=== PATIENT | male | born 1935 | race Caucasian/White ===

== ENCOUNTER → 2016-07-26 | Outpatient (CLI) | payer BC ==
[~2016-07-26] MED LIST: ACET-1757 PO; AMIO200T42 PO; AMLO10TA2 PO; AMLO5TAB2 PO; ASPI-650 PO; CARV12.52 PO; CEFD300C37 PO; DOCU-30 PO; FINA5TAB4 PO; GUAI5SYR PO; HYDR-3341 PO; LEVO75TA5 PO; LISI-167 PO; LORA-445 PO; METO25TA35 PO; METO50TA3 PO; OXYC5TAB3 PO; TAMS0.4C2 PO; TRAZ50TA18 PO
== END | disposition home or self-care (01) ==
LOC: CFH 12:43
PROVIDERS: ATTEND Internal Medicine Cardiovascular Disease
DX: I08.3 Combined rheumatic disorders of mitral, aortic and tricuspid valves (principal); I37.1 Nonrheumatic pulmonary valve insufficiency; I51.7 Cardiomegaly; I48.91 Unspecified atrial fibrillation
CPT/HCPCS: 93306

== ENCOUNTER 2017-05-24 09:37 | Inpatient (IN) | payer MEDICARE, BC ==
[~2017-05-24] VITALS: Ht 182.9 cm; Wt 92.2 kg
[~2017-05-24 09:37] MED LIST changes: +DOCU-131 PO; -DOCU-30 PO; -METO50TA3 PO; +METO50TA6 PO
[2017-05-24] MEDS ORDERED: SODIUM CHLORIDE 0.9% 1,000 ML IV ONE (09:50)
[2017-05-24 10:01] VITALS: BP 129/69
[2017-05-24] MEDS ORDERED: HYDR-3343 PO (10:19)
[2017-05-24] MEDS ORDERED: DOXA1TAB2 PO (10:20)
[2017-05-24] MEDS ORDERED: APIX5TAB PO (10:20)
[2017-05-24] MEDS ORDERED: LOVA10TA PO (10:20)
[2017-05-24] MEDS ORDERED: HYDR500C3 PO (10:22)
[2017-05-24] MEDS ORDERED: BUDE10.2 INH (10:23)
[2017-05-24] MEDS ORDERED: ALBU90AE INH (10:25)
[2017-05-24] MEDS ORDERED: ALLO300T PO (10:26)
[2017-05-24] MEDS ORDERED: PLEASE ENTER HEIGHT AND WEIGHT MC SCH (10:30)
[2017-05-24] MEDS ORDERED: FENTANYL PF 100 MCG/2ML ONE (11:45)
[2017-05-24] MEDS ORDERED: MIDAZOLAM 1 MG/ML, 5ML ONE (11:45)
[2017-05-24] MEDS ORDERED: VERAPAMIL 2.5 MG/ML, 2ML ONE (11:45)
[2017-05-24] MEDS ORDERED: TICAGRELOR 90 MG TABLET ONE (11:45)
[2017-05-24] MEDS ORDERED: NITROGLYCERIN 5 MG/ML, 10ML ONE (11:46)
[2017-05-24] MEDS ORDERED: BIVALIRUDIN 250 MG ONE ×2 (11:46→12:03)
[2017-05-24] MEDS ORDERED: LIDOCAINE 2%, 20ML ONE (11:46)
[2017-05-24] MEDS ORDERED: HEPARIN 1,000 UNITS/ML, 10ML ONE (11:46)
[2017-05-24] MEDS ORDERED: CLOPIDOGREL 300 MG TABLET ONE (12:47)
[2017-05-24] MEDS ORDERED: SODIUM CHLORIDE 0.9% 1,000 ML IV SCH (12:54)
[2017-05-24] MEDS ORDERED: ACETAMINOPHEN 325 MG TABLET PO PRN (13:00)
[2017-05-24] MEDS ORDERED: ONDANSETRON 2MG/ML, 2ML IVPush PRN (13:00)
[2017-05-24 13:10] VITALS: BP 118/60
[2017-05-24] MEDS ORDERED: FLU VACC QS2017-18 (36MOS+) UP/PF 0.5 ML IM-VACC ONE (14:00)
[2017-05-24] MEDS: FLUTICASONE/VILANTEROL 200-25MCG/INH INH SCH (14:00)
[2017-05-24] MEDS ORDERED: ALBUTEROL SULFATE 2.5 MG/3 ML NPPB PRN (14:00)
[2017-05-24 19:52] VITALS: BP 99/54
[2017-05-24] MEDS: LOVASTATIN 10 MG TABLET PO SCH (20:53)
[2017-05-24] MEDS: HYDROXYUREA 500 MG CAPSULE PO SCH (20:53)
[2017-05-24] MEDS: APIXABAN 5 MG TABLET PO SCH (20:53)
[2017-05-24] MEDS: TAMSULOSIN 0.4 MG CAP.ER.24H PO SCH (20:54)
[2017-05-24] MEDS: CARVEDILOL 25 MG TABLET PO SCH (20:54)
[2017-05-25 02:35] VITALS: BP 105/62
[2017-05-25 05:50] LABS: ALBUMIN 3.4 g/dL (3.4-5.0); ANION GAP 8 mmol/L (5-15); CHLORIDE 111 mmol/L (98-107); CREATININE 1.52 mg/dL (0.7-1.3)
[2017-05-25 05:51] LABS: CALCIUM 8.2 mg/dL (8.5-10.1)
[2017-05-25] MEDS ORDERED: ASPIRIN 81 MG TABLET EC PO SCH ×2 (06:00→09:00)
[2017-05-25] MEDS: HYDROXYUREA 500 MG CAPSULE PO SCH (08:13)
[2017-05-25] MEDS: DOXAZOSIN 1MG TABLET PO SCH (08:14)
[2017-05-25] MEDS: APIXABAN 5 MG TABLET PO SCH (08:14)
[2017-05-25] MEDS: AMLODIPINE 5 MG TABLET PO SCH (08:14)
[2017-05-25] MEDS: FLUTICASONE/VILANTEROL 200-25MCG/INH INH SCH (08:14)
[2017-05-25] MEDS: ALLOPURINOL 300 MG TABLET PO SCH (08:14)
[2017-05-25] MEDS: CARVEDILOL 25 MG TABLET PO SCH (08:14)
[2017-05-25] MEDS: FINASTERIDE 5 MG TABLET PO SCH (08:15)
[2017-05-25] MEDS: CLOPIDOGREL 75 MG TABLET PO SCH (08:15)
[2017-05-25 08:45] VITALS: BP 131/65
[2017-05-25] MEDS ORDERED: CLOPIDOGREL 75 MG TABLET PO SCH (09:00)
[2017-05-25] MEDS ORDERED: IRON SUCROSE COMPLEX 100MG/5ML IV ONE (09:00)
[2017-05-25 13:29] LABS: MEAN CORPUSCULAR HEMOGLOBIN 44.2 pg (27.5-34.5); MEAN CORPUSCULAR HGB CONC 34.9 g/dL (33.2-36.2); MEAN CORPUSCULAR VOLUME 126.6 fL (81-97); MEAN PLATELET VOLUME 6.4 fL (7.4-10.4); PLATELET COUNT 148 x10^3/uL (130-400); RED BLOOD COUNT 1.92 x10^6/uL (4.38-5.82); RED CELL DISTRIBUTION WIDTH 17.7 % (9.4-14.8)
[2017-05-25 13:56] LABS: MD YES
[2017-05-25 14:01] LABS: EOS#(MANUAL) 0.03 x10^3/uL (0.0-0.4); EOS% (MANUAL) 1 % (1-7); LYMPH#(MANUAL) 1.17 x10^3/uL (1-3.4); LYMPHS% (MANUAL) 45 % (22-44); MONOS#(MANUAL) 0.08 x10^3/uL (0.3-2.7); MONOS% (MANUAL) 3 % (2-9); REACTIVE LYMPHS # (MANUAL) 0.03 x10^3/uL (0-0); REACTIVE LYMPHS % (MANUAL) 1 % (0-0); SEGS% (MANUAL) 50 % (42-75)
[2017-05-25 14:06] LABS: ANISOCYTOSIS 1+
[2017-05-25 14:07] LABS: <PLATELET ESTIMATE> ADEQUATE; OVALOCYTES 1+; POLYCHROMASIA 1+
[2017-05-25 14:08] LABS: <PLT MORPHOLOGY> NORMAL PLT MORPH
[2017-05-25] MEDS: PANTOPRAZOLE 40 MG IV IVPush SCH (15:03)
[2017-05-25 15:57] VITALS: BP 117/76
[2017-05-25 19:20] VITALS: BP 109/60
[2017-05-25 23:11] VITALS: BP 109/53
[2017-05-26] MEDS: TAMSULOSIN 0.4 MG CAP.ER.24H PO SCH ×2 (00:01→20:41)
[2017-05-26] MEDS: LOVASTATIN 10 MG TABLET PO SCH ×2 (00:02→20:41)
[2017-05-26] MEDS: HYDROXYUREA 500 MG CAPSULE PO SCH ×3 (00:10→20:43)
[2017-05-26] MEDS: CARVEDILOL 25 MG TABLET PO SCH ×3 (00:12→20:41)
[2017-05-26 00:56] VITALS: BP 121/53
[2017-05-26] MEDS: PANTOPRAZOLE 40 MG IV IVPush SCH (01:37)
[2017-05-26] MEDS: ZOLPIDEM 5MG TABLET PO PRN ×2 (01:38→23:12)
[2017-05-26] MEDS ORDERED: OMEPRAZOLE 20 MG CAPSULE.DR PO SCH (07:30)
[2017-05-26] MEDS: ALLOPURINOL 300 MG TABLET PO SCH (09:43)
[2017-05-26] MEDS: DOXAZOSIN 1MG TABLET PO SCH (09:44)
[2017-05-26] MEDS: CLOPIDOGREL 75 MG TABLET PO SCH ×2 (09:44→11:20)
[2017-05-26] MEDS: AMLODIPINE 5 MG TABLET PO SCH (09:44)
[2017-05-26 09:48] VITALS: BP 109/65
[2017-05-26] MEDS: FINASTERIDE 5 MG TABLET PO SCH (11:20)
[2017-05-26] MEDS: FLUTICASONE/VILANTEROL 200-25MCG/INH INH SCH (11:21)
[2017-05-26 15:56] VITALS: BP 109/59
[2017-05-26 20:09] VITALS: BP 113/64
[2017-05-26] MEDS: PANTOPROZOLE 40MG TABLET PO SCH (20:41)
[2017-05-26 23:41] LABS: OCCULT BLOOD NEGATIVE (NEGATIVE)
[2017-05-27] VITALS (9 sets, daily range): BP systolic 100–126; BP diastolic 54–70
[2017-05-27] MEDS: FLUTICASONE/VILANTEROL 200-25MCG/INH INH SCH (08:23)
[2017-05-27] MEDS: PANTOPROZOLE 40MG TABLET PO SCH ×2 (08:23→21:44)
[2017-05-27] MEDS: CLOPIDOGREL 75 MG TABLET PO SCH (08:23)
[2017-05-27] MEDS: CARVEDILOL 25 MG TABLET PO SCH ×2 (08:23→21:44)
[2017-05-27] MEDS: FINASTERIDE 5 MG TABLET PO SCH (08:23)
[2017-05-27] MEDS: ALLOPURINOL 300 MG TABLET PO SCH (08:26)
[2017-05-27] MEDS: DOXAZOSIN 1MG TABLET PO SCH (08:28)
[2017-05-27] MEDS: AMLODIPINE 5 MG TABLET PO SCH (08:29)
[2017-05-27] MEDS: HYDROXYUREA 500 MG CAPSULE PO SCH (09:00)
[2017-05-27] MEDS ORDERED: FENTANYL PF 100 MCG/2ML ONE (13:05)
[2017-05-27] MEDS ORDERED: MIDAZOLAM 1 MG/ML, 5ML ONE (13:05)
[2017-05-27] MEDS: LOVASTATIN 10 MG TABLET PO SCH (21:43)
[2017-05-27] MEDS: TAMSULOSIN 0.4 MG CAP.ER.24H PO SCH (21:43)
[2017-05-27] MEDS: ZOLPIDEM 5MG TABLET PO PRN (23:40)
[2017-05-28 00:28] VITALS: BP 101/52
[2017-05-28 07:45] VITALS: BP 109/56
[2017-05-28] MEDS: FLUTICASONE/VILANTEROL 200-25MCG/INH INH SCH (08:51)
[2017-05-28] MEDS: DOXAZOSIN 1MG TABLET PO SCH (08:53)
[2017-05-28] MEDS: AMLODIPINE 5 MG TABLET PO SCH (08:53)
[2017-05-28] MEDS: CARVEDILOL 25 MG TABLET PO SCH (08:53)
[2017-05-28] MEDS: PANTOPROZOLE 40MG TABLET PO SCH (08:54)
[2017-05-28] MEDS: FINASTERIDE 5 MG TABLET PO SCH (08:54)
[2017-05-28] MEDS: ALLOPURINOL 300 MG TABLET PO SCH (08:54)
[2017-05-28] MEDS: CLOPIDOGREL 75 MG TABLET PO SCH (08:54)
[2017-05-28] MEDS ORDERED: PANT40TA5 PO (10:07)
[2017-05-28] MEDS ORDERED: CLOP75TA PO (10:07)
[2017-05-28] MEDS ORDERED: ATOR40TA78 PO (10:07)
[2017-05-28 11:01] VITALS: BP 122/62
== END 2017-05-28 12:51 | disposition home or self-care (01) | DRG 246 ==
LOC: CACL 09:37 → 5SO 12:54 → CACL 13:11 → OBSVTOIN 05-25 13:37
PROVIDERS: ADMIT Internal Medicine Cardiovascular Disease; ATTEND Internal Medicine Cardiovascular Disease
PROC: 027034Z Dilation of Coronary Artery, One Artery with Drug-eluting Intraluminal Device, Percutaneous Approach (ICD-10-PCS; 2017-05-25)
PROC: 4A023N7 Measurement of Cardiac Sampling and Pressure, Left Heart, Percutaneous Approach (ICD-10-PCS; 2017-05-25)
PROC: B2151ZZ Fluoroscopy of Left Heart using Low Osmolar Contrast (ICD-10-PCS; 2017-05-25)
PROC: B2111ZZ Fluoroscopy of Multiple Coronary Arteries using Low Osmolar Contrast (ICD-10-PCS; 2017-05-25)
PROC: 4A033BC Measurement of Arterial Pressure, Coronary, Percutaneous Approach (ICD-10-PCS; 2017-05-25)
PROC: 30233N1 Transfusion of Nonautologous Red Blood Cells into Peripheral Vein, Percutaneous Approach (ICD-10-PCS; 2017-05-27)
PROC: 0DJ08ZZ Inspection of Upper Intestinal Tract, Via Natural or Artificial Opening Endoscopic (ICD-10-PCS; principal; 2017-05-27 09:30)
DX: I25.118 Atherosclerotic heart disease of native coronary artery with other forms of angina pectoris (principal); N17.0 Acute kidney failure with tubular necrosis; C95.90 Leukemia, unspecified not having achieved remission; D68.69 Other thrombophilia; I50.30 Unspecified diastolic (congestive) heart failure; I13.0 Hypertensive heart and chronic kidney disease with heart failure and stage 1 through stage 4 chronic kidney disease, or unspecified chronic kidney disease; K29.60 Other gastritis without bleeding; I48.2 Chronic atrial fibrillation; N18.9 Chronic kidney disease, unspecified; J44.9 Chronic obstructive pulmonary disease, unspecified; E78.5 Hyperlipidemia, unspecified; D64.9 Anemia, unspecified; K29.80 Duodenitis without bleeding; K63.5 Polyp of colon; D50.0 Iron deficiency anemia secondary to blood loss (chronic); Z79.899 Other long term (current) drug therapy; Z79.02 Long term (current) use of antithrombotics/antiplatelets; Z87.891 Personal history of nicotine dependence
CPT/HCPCS: 36415; 80048; 82040; 82272; 83735; 84484; 85014; 85018; 85025; 86850; 86900; 86923; 93005; 93306; 93458; 93571; 99152; 99153; 99156; 99157; C1769; C1894; C9600; G0378; J0583; J1644; J1756; J2250; J3010; J3490; C1874; C1887; C9113; P9016; Q9967

== ENCOUNTER 2017-07-20 16:38 | Inpatient (IN) | payer MEDICARE, BC ==
[~2017-07-20] VITALS: Ht 185.4 cm; Wt 95.4 kg
[~2017-07-20 16:38] MED LIST changes: +ALBU90AE INH; +ALLO300T PO; +APIX5TAB PO; +ATOR40TA78 PO; +BUDE10.2 INH; +CLOP75TA PO; +DOXA1TAB2 PO; +HYDR-3343 PO; +HYDR500C3 PO; +LOVA10TA PO; +PANT40TA5 PO
[2017-07-20] MEDS ORDERED: MORPHINE SULFATE 4 MG/ML, 1ML ONE (16:55)
[2017-07-20] MEDS ORDERED: HYDROmorphone 1 MG/ML, 1ML IV ONE ×2 (17:00→17:30)
[2017-07-20] MEDS ORDERED: HYDROmorphone 1 MG/ML, 1ML ONE ×2 (17:01→17:20)
[2017-07-20] MEDS ORDERED: ONDANSETRON ODT 4 MG ONE (17:21)
[2017-07-20] MEDS ORDERED: ONDANSETRON ODT 4 MG PO ONE (17:30)
[2017-07-20] MEDS ORDERED: OXYcodone/APAP 5/325MG TABLET ONE (19:18)
[2017-07-20] MEDS ORDERED: OXYcodone/APAP 5/325MG TABLET PO ONE (19:30)
[2017-07-20 19:35] LABS: BASOPHILS # (AUTO) 0.02 x10^3/uL (0-0.1); BASOPHILS % (AUTO) 0 % (0-1); EOSINOPHILS # (AUTO) 0.04 x10^3/uL (0-0.4); EOSINOPHILS % (AUTO) 1 % (1-7); LYMPHOCYTES # (AUTO) 1.44 x10^3/uL (1-3.4); LYMPHOCYTES % (AUTO) 16 % (22-44); MD NO; MEAN CORPUSCULAR HEMOGLOBIN 33.3 pg (27.5-34.5); MEAN CORPUSCULAR VOLUME 100.8 fL (81-97); MEAN PLATELET VOLUME 6.8 fL (7.4-10.4); MONOCYTES # (AUTO) 0.56 x10^3/uL (0.2-0.8); MONOCYTES % (AUTO) 6 % (2-9); NEUTROPHILS # (AUTO) 6.86 x10^3/uL (1.8-6.8); NEUTROPHILS % (AUTO) 77 % (42-75); PLATELET COUNT 327 x10^3/uL (130-400); RED BLOOD COUNT 3.98 x10^6/uL (4.38-5.82); RED CELL DISTRIBUTION WIDTH 18.4 % (9.4-14.8)
[2017-07-20 19:44] LABS: ANION GAP 6 mmol/L (5-15); CALCIUM 8.6 mg/dL (8.5-10.1); CHLORIDE 113 mmol/L (98-107); CREATININE 0.96 mg/dL (0.7-1.3)
[2017-07-20] MEDS ORDERED: AMLO5TAB2 PO (20:00)
[2017-07-20 20:33] VITALS: BP 122/74
[2017-07-20] MEDS ORDERED: SODIUM CHLORIDE 0.9% 1,000 ML IV SCH (21:00)
[2017-07-20] MEDS ORDERED: ONDANSETRON ODT 4 MG PO PRN (21:00)
[2017-07-20] MEDS ORDERED: hydrALAzine 20 MG/ML, 1ML IVPush PRN (21:00)
[2017-07-20] MEDS: ALLOPURINOL 300 MG TABLET PO SCH (21:29)
[2017-07-20] MEDS: TAMSULOSIN 0.4 MG CAP.ER.24H PO SCH (21:29)
[2017-07-20] MEDS: CARVEDILOL 25 MG TABLET PO SCH (21:29)
[2017-07-20] MEDS ORDERED: ALBUTEROL SULFATE 2.5 MG/3 ML NPPB SCH (21:30)
[2017-07-20] MEDS ORDERED: ALBUTEROL SULFATE 2.5 MG/3 ML NPPB PRN (22:00)
[2017-07-21 02:35] VITALS: BP 114/63
[2017-07-21 08:25] VITALS: BP 96/52
[2017-07-21] MEDS: CLOPIDOGREL 75 MG TABLET PO SCH (08:29)
[2017-07-21] MEDS: FINASTERIDE 5 MG TABLET PO SCH (08:29)
[2017-07-21] MEDS: DOXAZOSIN 1MG TABLET PO SCH (08:32)
[2017-07-21] MEDS: AMLODIPINE 5 MG TABLET PO SCH (08:32)
[2017-07-21] MEDS: CARVEDILOL 25 MG TABLET PO SCH ×2 (08:32→20:37)
[2017-07-21] MEDS: FLUTICASONE/VILANTEROL 200-25MCG/INH INH SCH (08:32)
[2017-07-21 10:47] LABS: ALBUMIN 2.9 g/dL (3.4-5.0); ANION GAP 8 mmol/L (5-15); CALCIUM 7.6 mg/dL (8.5-10.1); CHLORIDE 109 mmol/L (98-107)
[2017-07-21 11:17] LABS: ALANINE AMINOTRANSFERASE 16 U/L (12-78); ALKALINE PHOSPHATASE 92 U/L (45-117); BILIRUBIN,TOTAL 2.4 mg/dL (0.2-1.0); CREATININE 1.06 mg/dL (0.7-1.3); FREE T4 (FREE THYROXINE) 1.29 ng/dL (0.76-1.46); TOTAL PROTEIN 5.4 g/dL (6.4-8.2)
[2017-07-21] MEDS: HYDROmorphone 2 MG/ML, 1ML IVPush PRN ×3 (12:53→20:37)
[2017-07-21 15:06] VITALS: BP 119/60
[2017-07-21 20:16] VITALS: BP 111/49
[2017-07-21] MEDS: ALLOPURINOL 300 MG TABLET PO SCH (20:36)
[2017-07-21] MEDS: TAMSULOSIN 0.4 MG CAP.ER.24H PO SCH (20:37)
[2017-07-21] MEDS: POLYETHYLENE GLYCOL 17 GM PACKET PO PRN (20:48)
[2017-07-22 02:30] VITALS: BP 135/50
[2017-07-22] MEDS: FINASTERIDE 5 MG TABLET PO SCH (08:19)
[2017-07-22] MEDS: CLOPIDOGREL 75 MG TABLET PO SCH (08:19)
[2017-07-22 08:20] VITALS: BP 120/52
[2017-07-22] MEDS: CARVEDILOL 25 MG TABLET PO SCH ×2 (08:20→20:56)
[2017-07-22 08:45] VITALS: BP 109/61
[2017-07-22] MEDS: FLUTICASONE/VILANTEROL 200-25MCG/INH INH SCH (09:00)
[2017-07-22] MEDS: AMLODIPINE 5 MG TABLET PO SCH (09:00)
[2017-07-22] MEDS: DOXAZOSIN 1MG TABLET PO SCH (09:00)
[2017-07-22] MEDS: POLYETHYLENE GLYCOL 17 GM PACKET PO PRN (11:22)
[2017-07-22 14:49] VITALS: BP 117/60
[2017-07-22 20:41] VITALS: BP 109/45
[2017-07-22] MEDS: ALLOPURINOL 300 MG TABLET PO SCH (20:55)
[2017-07-22] MEDS: TAMSULOSIN 0.4 MG CAP.ER.24H PO SCH (20:55)
[2017-07-23 03:09] VITALS: BP 100/54
[2017-07-23 08:03] VITALS: BP 117/59
[2017-07-23] MEDS: CLOPIDOGREL 75 MG TABLET PO SCH (08:29)
[2017-07-23] MEDS: FINASTERIDE 5 MG TABLET PO SCH (08:29)
[2017-07-23] MEDS: CARVEDILOL 25 MG TABLET PO SCH ×2 (08:30→21:07)
[2017-07-23] MEDS: FLUTICASONE/VILANTEROL 200-25MCG/INH INH SCH (09:00)
[2017-07-23] MEDS: DOXAZOSIN 1MG TABLET PO SCH (09:00)
[2017-07-23] MEDS: AMLODIPINE 5 MG TABLET PO SCH (09:00)
[2017-07-23] MEDS ORDERED: BISACODYL 10 MG SUPP PR PRN (11:00)
[2017-07-23] MEDS ORDERED: CEFTRIAXONE PMX 2GM/50ML 50 ML IV SCH (13:00)
[2017-07-23 13:51] VITALS: BP 110/53
[2017-07-23 13:53] LABS: ALBUMIN 2.9 g/dL (3.4-5.0); ANION GAP 7 mmol/L (5-15); CALCIUM 8.1 mg/dL (8.5-10.1); CHLORIDE 105 mmol/L (98-107)
[2017-07-23 13:56] LABS: ALANINE AMINOTRANSFERASE 16 U/L (12-78); ALKALINE PHOSPHATASE 88 U/L (45-117); BILIRUBIN,TOTAL 3.3 mg/dL (0.2-1.0); CREATININE 1.16 mg/dL (0.7-1.3); TOTAL PROTEIN 5.8 g/dL (6.4-8.2)
[2017-07-23 15:31] LABS: BASOPHILS # (AUTO) 0.02 x10^3/uL (0-0.1); BASOPHILS % (AUTO) 0 % (0-1); EOSINOPHILS # (AUTO) 0.02 x10^3/uL (0-0.4); EOSINOPHILS % (AUTO) 0 % (1-7); LYMPHOCYTES # (AUTO) 1.06 x10^3/uL (1-3.4); LYMPHOCYTES % (AUTO) 15 % (22-44); MD NO; MEAN CORPUSCULAR HGB CONC 33.3 g/dL (33.2-36.2); MEAN CORPUSCULAR VOLUME 99.3 fL (81-97); MEAN PLATELET VOLUME 6.7 fL (7.4-10.4); MONOCYTES # (AUTO) 0.69 x10^3/uL (0.2-0.8); MONOCYTES % (AUTO) 10 % (2-9); NEUTROPHILS # (AUTO) 5.47 x10^3/uL (1.8-6.8); NEUTROPHILS % (AUTO) 75 % (42-75); PLATELET COUNT 265 x10^3/uL (130-400); RED BLOOD COUNT 2.94 x10^6/uL (4.38-5.82); RED CELL DISTRIBUTION WIDTH 18.1 % (9.4-14.8)
[2017-07-23 17:01] LABS: MICROSCOPIC NOT IND
[2017-07-23 17:07] LABS: CULTURE INDICATED? NO
[2017-07-23] MEDS: POLYETHYLENE GLYCOL 17 GM PACKET PO PRN (17:22)
[2017-07-23 19:03] VITALS: BP 110/61
[2017-07-23] MEDS: DOXYCYCLINE 100MG TABLET PO SCH (21:07)
[2017-07-23] MEDS: ALLOPURINOL 300 MG TABLET PO SCH (21:07)
[2017-07-23] MEDS: TAMSULOSIN 0.4 MG CAP.ER.24H PO SCH (21:07)
[2017-07-24 00:52] VITALS: BP 128/55
[2017-07-24 08:14] VITALS: BP 135/57
[2017-07-24] MEDS: CARVEDILOL 25 MG TABLET PO SCH ×2 (08:44→20:57)
[2017-07-24] MEDS: DOXAZOSIN 1MG TABLET PO SCH (08:44)
[2017-07-24] MEDS: AMLODIPINE 5 MG TABLET PO SCH (08:44)
[2017-07-24] MEDS: FINASTERIDE 5 MG TABLET PO SCH (08:44)
[2017-07-24] MEDS: DOXYCYCLINE 100MG TABLET PO SCH ×2 (08:44→20:57)
[2017-07-24] MEDS: CLOPIDOGREL 75 MG TABLET PO SCH (08:44)
[2017-07-24] MEDS: CEFOTETAN PMX 2GM/50ML 50 ML IV SCH ×2 (11:16→23:01)
[2017-07-24 12:38] VITALS: BP 138/50
[2017-07-24 15:33] LABS: INTERNATIONAL NORMALIZED RATIO 1.23 (0.93-1.1); PROTHROMBIN TIME 12.7 Seconds (9.6-11.5)
[2017-07-24 19:01] VITALS: BP 118/61
[2017-07-24] MEDS: TAMSULOSIN 0.4 MG CAP.ER.24H PO SCH (20:57)
[2017-07-24] MEDS: ALLOPURINOL 300 MG TABLET PO SCH (20:57)
[2017-07-25 03:24] VITALS: BP 133/58
[2017-07-25 05:37] LABS: CHLORIDE 105 mmol/L (98-107)
[2017-07-25 05:47] LABS: ALANINE AMINOTRANSFERASE 15 U/L (12-78); ALBUMIN 2.6 g/dL (3.4-5.0); ALKALINE PHOSPHATASE 78 U/L (45-117); ANION GAP 7 mmol/L (5-15); BILIRUBIN, DIRECT 0.5 mg/dL (0.1-0.2); BILIRUBIN,INDIRECT 1.2 mg/dL (0.0-2.0); BILIRUBIN,TOTAL 1.7 mg/dL (0.2-1.0); CREATININE 1.08 mg/dL (0.7-1.3); TOTAL PROTEIN 5.5 g/dL (6.4-8.2)
[2017-07-25 06:50] VITALS: BP 135/66
[2017-07-25] MEDS: CLOPIDOGREL 75 MG TABLET PO SCH (08:29)
[2017-07-25] MEDS: DOXYCYCLINE 100MG TABLET PO SCH (08:29)
[2017-07-25] MEDS: DOXAZOSIN 1MG TABLET PO SCH (08:30)
[2017-07-25] MEDS: CARVEDILOL 25 MG TABLET PO SCH (08:30)
[2017-07-25] MEDS: FINASTERIDE 5 MG TABLET PO SCH (08:30)
[2017-07-25] MEDS: AMLODIPINE 5 MG TABLET PO SCH (08:31)
[2017-07-25] MEDS: CEFOTETAN PMX 2GM/50ML 50 ML IV SCH (11:19)
[2017-07-25] MEDS ORDERED: POLY17PO5 PO (12:03)
[2017-07-25] MEDS ORDERED: CEFD300C37 PO (12:03)
[2017-07-25] MEDS ORDERED: DOXY100T PO (12:03)
[2017-07-25 12:55] VITALS: BP 108/58
== END 2017-07-25 17:10 | DRG 444 ==
LOC: ED 19:15 → 4NOR 19:20 → ED 20:05
PROVIDERS: ADMIT Hospitalist; ATTEND Hospitalist
PROC: 2W39XYZ Immobilization of Left Upper Extremity using Other Device (ICD-10-PCS; 2017-07-20)
PROC: 0T9B70Z Drainage of Bladder with Drainage Device, Via Natural or Artificial Opening (ICD-10-PCS; principal; 2017-07-23)
DX: K81.0 Acute cholecystitis (principal); E43 Unspecified severe protein-calorie malnutrition; J18.9 Pneumonia, unspecified organism; D68.59 Other primary thrombophilia; I48.2 Chronic atrial fibrillation; E87.5 Hyperkalemia; Z86.74 Personal history of sudden cardiac arrest; S42.202A Unspecified fracture of upper end of left humerus, initial encounter for closed fracture; J98.11 Atelectasis; W01.0XXA Fall on same level from slipping, tripping and stumbling without subsequent striking against object, initial encounter; D63.8 Anemia in other chronic diseases classified elsewhere; E78.5 Hyperlipidemia, unspecified; I10 Essential (primary) hypertension; I25.10 Atherosclerotic heart disease of native coronary artery without angina pectoris; N40.0 Benign prostatic hyperplasia without lower urinary tract symptoms; S00.81XA Abrasion of other part of head, initial encounter; Y93.01 Activity, walking, marching and hiking; E04.1 Nontoxic single thyroid nodule; Z95.5 Presence of coronary angioplasty implant and graft; Z68.27 Body mass index [BMI] 27.0-27.9, adult; Z85.6 Personal history of leukemia; Z87.891 Personal history of nicotine dependence; Z91.81 History of falling; Z88.5 Allergy status to narcotic agent; Y92.89 Other specified places as the place of occurrence of the external cause; Y99.8 Other external cause status
CPT/HCPCS: 36415; 70450; 71045; 72125; 76700; 80048; 80053; 81003; 82247; 82248; 82306; 82607; 83735; 84439; 84443; 84481; 85025; 85610; 87040; 93005; 96374; 99285; J0696; J1170; Q0162; J7030; S0074

== ENCOUNTER 2018-01-17 17:40 | Emergency (ER) | payer MEDICARE, BC ==
[~2018-01-17] VITALS: Ht 185.4 cm; Wt 95.0 kg
[~2018-01-17 17:40] MED LIST changes: -AMLO10TA2 PO; +AMLO10TA6 PO; -AMLO5TAB2 PO; +AMLO5TAB7 PO; +DOXY100T PO; +EPINEPHRINE SYRINGE 0.1 MG/ML, 10ML ONE; +POLY17PO5 PO; +SODIUM BICARB 8.4%, 50ML SYRINGE ONE; +TRAZ-136 PO; -TRAZ50TA18 PO
[2018-01-17] MEDS ORDERED: CODE BLUE RESPONSE XX ONE (18:00)
== END 2018-01-17 19:37 | disposition expired ==
LOC: ED 17:45
DX: I46.9 Cardiac arrest, cause unspecified (principal); I10 Essential (primary) hypertension; I25.10 Atherosclerotic heart disease of native coronary artery without angina pectoris; Z90.49 Acquired absence of other specified parts of digestive tract
CPT/HCPCS: 92950; 99291